=== PATIENT | female | born 1995 | race Caucasian/White ===

== ENCOUNTER 2017-06-02 09:36 | Emergency (ER) | payer OTHER ==
--- NOTE | 2017-06-02 09:52 | PDOC ---
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 As per EMS, patient clocked into work and suddenly became anxious, dyspneic with difficulty breathing. EMS gave 2 duonebs and Decadron 10 mg enroute to the ED. Upon arrival, patient reports much relief and is able to breath normally. Patient notes, she has been using her inhalers much more recently and states it may be due to seasonal allergies. Patient has been using many albuterol pumps and nebulizers at home. Patient reports chest tightness however denies any palpitations, diaphoresis. Patient denies oral contraceptive use, calf pain, LE edema. She denies headache or dizziness. She denies fever, chills, abdominal pain, nausea, vomit, diarrhea or constipation. She denies dysuria, frequency, urgency or hematuria. Patient denies sick contacts or recent travel. Allergies: seasonal allergies Past surgical history: None Social history: None PCP: None <Esperanza Shaw - Last Filed: 06/02/17 10:15> <Shaunna Burgos - Last Filed: 06/02/17 11:44> - General Stated Complaint: ASTHMA ATTACK Time Seen by Provider: 06/02/17 09:46 Past History <Esperanza Shaw - Last Filed: 06/02/17 10:15> <Shaunna Burgos - Last Filed: 06/02/17 11:44> - Past Medical History Allergies/Adverse Reactions: Allergies Allergy/AdvReac Type Severity Reaction Status Date / Time No Known Allergies Allergy Verified 06/02/17 09:53 Home Medications: Ambulatory Orders Albuterol Sulfate Inhaler - [Ventolin HFA Inhaler -] 1 - 2 inh PO Q4H #1 inhaler 06/02/17 Prednisone [Deltasone -] 40 mg PO DAILY #4 tablet 06/02/17 Review of Systems - Review of Systems Able to Perform ROS?: Yes Comments:: 06/02/17 10:16 GENERAL/CONSTITUTIONAL: No fever or chills. No weakness. HEAD, EYES, EARS, NOSE AND THROAT: No change in vision. No ear pain or discharge. No sore throat. CARDIOVASCULAR: No chest pain or shortness of breath. RESPIRATORY: +cough, wheezing. No hemoptysis. GASTROINTESTINAL: No nausea, vomiting, diarrhea or constipation. GENITOURINARY: No dysuria, frequency, or change in urination. MUSCULOSKELETAL: No joint or muscle swelling or pain. No neck or back pain. SKIN: No rash NEUROLOGIC: No headache, vertigo, loss of consciousness, or change in strength/ sensation. ENDOCRINE: No increased thirst. No abnormal weight change. HEMATOLOGIC/LYMPHATIC: No anemia, easy bleeding, or history of blood clots. ALLERGIC/IMMUNOLOGIC: No hives or skin allergy. <Esperanza Shaw - Last Filed: 06/02/17 10:15> *Physical Exam - Physical Exam Comments: 06/02/17 10:16 GENERAL: Awake, alert, and fully oriented, in no acute distress. +Anxious. HEAD: No signs of trauma EYES: PERRLA, EOMI, sclera anicteric, conjunctiva clear ENT: Auricles normal inspection, hearing grossly normal, nares patent, oropharynx clear without exudates. Moist mucosa NECK: Normal ROM, supple, no lymphadenopathy, JVD, or masses LUNGS: Breath sounds equal, clear to auscultation bilaterally. No wheezes, and no crackles HEART: Regular rate and rhythm, normal S1 and S2, no murmurs, rubs or gallops ABDOMEN: Soft, nontender, normoactive bowel sounds. No guarding, no rebound. No masses EXTREMITIES: Normal range of motion, no edema. No clubbing or cyanosis. No cords, erythema, or tenderness NEUROLOGICAL: Cranial nerves II through XII grossly intact. Normal speech, normal gait SKIN: Warm, Dry, normal turgor, no rashes or lesions noted. <Esperanza Shaw - Last Filed: 06/02/17 10:15> Heart Score/ECG Review - ECG Intrepretation Comment:: 06/02/17 10:40 sinus at 63, t wave inversions v2-3, nl axis, no other acute changes, no st changes <Shaunna Burgos - Last Filed: 06/02/17 11:44> ED Treatment Course - Medications Given in the ED: ED Medications Discontinued Medications Generic Name Dose Route Start Last Admin Trade Name Freq PRN Reason Stop Dose Admin Sodium Chloride 1,000 ml 06/02/17 09:53 06/02/17 10:09 Normal Saline - IV 06/02/17 09:54 1,000 ml ONCE ONE Administration <Esperanza Shaw - Last Filed: 06/02/17 10:15> - LABORATORY CBC & Chemistry Diagram: 06/02/17 11:00 06/02/17 10:10 <Shaunna Burgos - Last Filed: 06/02/17 11:44> Medical Decision Making - Medical Decision Making 06/02/17 10:08 a/p: 22yo female with asthma exacerbation -hx of anemia -lungs currently clear after 2 neb tx by medics -labs, ekg, cxr, reassess -feed, ivf hydration 06/02/17 11:39 pt feeling better. Requesting to sign out AMA. Pt states she no longer wants to wait for imaging or labs. Understands she is signing out AMA. Note: The patient insists on leaving the emergency dept and is signing out against medical advice. The patient understands the risks and complications that may result from the refusal of medical care and admission which includes and permanent disability. The patient has the mental capacity of understanding the risks of refusing care and is capable of making an informed decision. The patient was instructed to return to the emergency department should [] change [] mind regarding medical care or should [] condition worsen. The patient signed the Against Medical Advice form. <Shaunna Burgos - Last Filed: 06/02/17 11:44> *DC/Admit/Observation/Transfer - Attestations Scribe Attestion: 06/02/17 10:16 Documentation prepared by Esperanza Shaw, acting as medical chief technician for Shaunna Burgos DO <Esperanza Shaw - Last Filed: 06/02/17 10:15> - Discharge Dispostion Admit: No - Attestations Physician Attestion: 06/02/17 11:44 I, Dr. Shaunna Burgos DO, attest that this document has been prepared under my direction and personally reviewed by me in its entirety. I further attest, that it accurately reflects all work, treatment, procedures and medical decision -making performed by me. <Shaunna Burgos - Last Filed: 06/02/17 11:44> Diagnosis at time of Disposition: Exacerbation of asthma - Discharge Dispostion Disposition: AGAINST MEDICAL ADVICE Condition at time of disposition: Unchanged/Unknown - Prescriptions Prescriptions: Prednisone [Deltasone -] 40 mg PO DAILY #4 tablet Albuterol Sulfate Inhaler - [Ventolin HFA Inhaler -] 1 - 2 inh PO Q4H #1 inhaler - Referrals Referrals: Otis Avalos MD [Staff Physician] - Los Crystal MD [Staff Physician] - - Patient Instructions Printed Discharge Instructions: Asthma -- Adult - Post Discharge Activity Forms/Work/School Notes: Back to Work
[2017-06-02] MEDS ORDERED: SODIUM CHLORIDE 0.9% 1000 ML INFUS.BAG IV ONE (09:53)
[2017-06-02] MEDS ORDERED: ALBUTEROL SO4 2.5/IPRATROPIUM 0.5 INH SOL 3 ML VIAL.NEB. NEB ONE (09:56)
[2017-06-02] MEDS ORDERED: DEXAMETHASONE SOD PHOSPHATE 10 MG/1 ML VIAL ONE (09:56)
[2017-06-02 11:13] LABS: BASOPHIL 0.3 % (0-2.0); EOSINOPHIL 0.2 % (0-4.5); MCH 27.1 pg (25.7-33.7); MCHC 32.4 g/dl (32.0-36.0); MEAN CELL VOLUME 83.7 fl (80-96); MEAN PLT VOLUME 8.5 fl (7.5-11.1); NEUTROPHILS 83.7 % (42.8-82.8); PLATELET COUNT 218 K/MM3 (134-434); RDW 14.8 % (11.6-15.6); WHITE BLOOD COUNT 7.3 K/mm3 (4.0-10.0)
[2017-06-02 11:44] LABS: ALBUMIN 3.3 g/dl (3.4-5.0); ANION GAP 10 (8-16); CALCIUM 8.2 mg/dL (8.5-10.1); CO2 23 mmol/L (21-32); CREATININE 0.7 mg/dL (0.55-1.02); GLUCOSE,RANDOM 121 mg/dL (74-106); MAGNESIUM 1.9 mg/dL (1.8-2.4); SGOT/AST 12 U/L (15-37); SGPT/ALT 16 U/L (12-78)
[2017-06-02 11:46] LABS: ALK PHOS 74 U/L (45-117); BILIRUBIN,TOTAL 0.4 mg/dL (0.2-1.0); TOT PROT 6.8 g/dl (6.4-8.2)
[2017-06-02 12:03] VITALS: BP 114/68; PULSE 74; TEMP 98.7; BMI 25.0
--- NOTE | 2017-06-02 17:00 | EKG ---
Test Reason : Blood Pressure : / mmHG Vent. Rate : 063 BPM Atrial Rate : 063 BPM P-R Int : 144 ms QRS Dur : 082 ms QT Int : 428 ms P-R-T Axes : 055 041 035 degrees QTc Int : 437 ms NORMAL SINUS RHYTHM POSSIBLE LEFT ATRIAL ENLARGEMENT BORDERLINE ECG NO PREVIOUS ECGS AVAILABLE Confirmed by BUCKY BAY, JAKE ([id number]) on 06/02/2017 5:00:15 PM Referred By: Confirmed By:JAKE LWALER MD
== END 2017-06-02 11:52 | disposition left against medical advice (07) ==
LOC: JER 09:36
DX: J45.901 Unspecified asthma with (acute) exacerbation (principal)
CPT/HCPCS: 36415; 80053; 83735; 85025; 86850; 86900; 86901; 93005; 93010; 99283-25

== ENCOUNTER 2017-06-13 12:30 | Emergency (ER) | payer SELFPAY ==
[2017-06-13 12:35] VITALS: TEMP 97.8; BMI 25.0
[2017-06-13] MEDS ORDERED: ALBUTEROL SO4 2.5/IPRATROPIUM 0.5 INH SOL 3 ML VIAL.NEB. NEB ONE (12:43)
--- NOTE | 2017-06-13 12:43 | PDOC ---
History of Present Illness - General Chief Complaint: Asthma Stated Complaint: Asthma Time Seen by Provider: 06/13/17 12:36 - History of Present Illness Initial Comments: 06/13/17 13:18 The patient is a 22 year old female with a history of asthma and anemia who presents for evaluation of SOB and cough. The patient reports going to work today and began experiencing difficulty breathing. She reports that she did not have her inhaler on her at the time. She states that she was recently seen in the ER 2 weeks ago for these same complaints and left AMA after improving with steroids and duonebs. She reports that she received one duoneb en route to the ED. She denies fevers, chills, chest pain, abdominal pain, or changes with urination or bowel movements. She reports some associated cough with her symptoms also beginning today. Past History - Past Medical History Allergies/Adverse Reactions: Allergies Allergy/AdvReac Type Severity Reaction Status Date / Time No Known Allergies Allergy Verified 06/13/17 12:33 Home Medications: Ambulatory Orders Albuterol Sulfate Inhaler - [Ventolin HFA Inhaler -] 1 - 2 inh PO Q4H #1 inhaler 06/02/17 Prednisone [Deltasone -] 40 mg PO DAILY #8 tablet 06/13/17 Anemia: Yes Asthma: Yes COPD: No - Suicide/Smoking/Psychosocial Hx Smoking History: Never smoked Have you smoked in the past 12 months: No Hx Alcohol Use: No Drug/Substance Use Hx: No Substance Use Type: None Review of Systems - Review of Systems Comments:: 06/13/17 13:21 Constitutional: No fevers, chills, fatigue, malaise HEENT: No Rhinorrhea, nasal congestion, Cardiovascular: No chest pain, syncope, palpitations, lightheadedness Respiratory: Cough, SOB. No Hemoptysis, Gastrointestinal: No Abdominal pain, Nausea, Vomiting, Constipation, Diarrhea, Melena Genitourinary: No Dysuria, Frequency, Urgency, Hesitancy, Hematuria, Flank pain Musculoskeletal: No Myalgia, arthralgia Skin: No rashes, bruising, pallor Neurologic: No Headache, Dizziness, Numbness, Weakness, or Tingling Psychiatric: No Hallucinations. No SI or HI *Physical Exam - Vital Signs Last Vital Signs Temp Pulse Resp BP Pulse Ox 97.8 F 74 24 145/87 99 06/13/17 12:33 11/13/17 12:33 06/13/17 12:33 06/13/17 12:33 06/13/17 12:33 - Physical Exam Comments: 06/13/17 13:21 General Appearance: Nourished. No Apparent Distress HEENT: EOMI, VICTORINO. No Pharyngeal Erythema, Tonsillar Exudate, Tonsillar Erythema Neck: No Cervical Lymphadenopathy Respiratory/Chest: Lungs Clear, Normal Breath Sounds. Mild expiratory wheezing. No Crackles, Rales, Rhonchi, Cardiovascular: Regular Rhythm, Regular Rate. No Murmur, Gallops, Rubs Gastrointestinal/Abdominal: Normal Bowel Sounds, Soft. No Guarding, Rebound, Tenderness Musculoskeletal: No CVA Tenderness Extremity: Normal Capillary Refill Integumentary: Normal Color, Dry, Warm Neurologic: Fully Oriented, Alert, Normal Mood/Affect, Normal Response, Medical Decision Making - Medical Decision Making 06/13/17 13:22 The patient is a 22 year old female with a history of asthma and anemia who presents for evaluation of SOB and cough. Given the patient's history of asthma and recent similar presentation due to an asthma exacerbation, it is likely the patient's symptoms are due to an asthma exacerbation. The patient reports that this presentation is similar to her normal asthma exacerbations. We will treat with a duoneb and prednisone here in the ED. We will continue to monitor and reassess. 06/13/17 14:03 The patient reports significant improvement in her symptoms after treatment here in the ED. We are comfortable discharging the patient home at this time with PCP follow up on a course of prednisone. We discussed the plan with the patient who voiced understanding and is agreeable with the plan. *DC/Admit/Observation/Transfer Diagnosis at time of Disposition: Asthma exacerbation Qualifiers: Asthma severity: mild Asthma persistence: unspecified Qualified Code(s): J45.901 - Unspecified asthma with (acute) exacerbation - Discharge Dispostion Disposition: HOME Condition at time of disposition: Improved Admit: No - Prescriptions Prescriptions: Prednisone [Deltasone -] 40 mg PO DAILY #8 tablet - Referrals - Patient Instructions Printed Discharge Instructions: Asthma -- Adult Additional Instructions: Please return to the ER if you experience concerning or worsening symptoms including fevers, chest pain, worsening difficulty breathing. You were seen in the ER for an asthma exacerbation. You were treated with steroids and nebulizer treatment. It is important that you keep your albuterol inhaler on your person in case of future exacerbations. We have sent a prescription for steroids to your pharmacy that you should take once a day for the next 4 days. It is important that you call to schedule a follow up appointment with your primary care provider to discuss further management of your symptoms. - Post Discharge Activity
[2017-06-13] MEDS ORDERED: predniSONE 20 MG TABLET (UD) PO ONE (13:07)
[2017-06-13] MEDS ORDERED: predniSONE 20 MG TABLET (UD) ONE (13:10)
--- NOTE | 2017-06-13 14:24 | PDOC ---
Attending Attestation - Resident Resident Name: ChristianeColin - ED Attending Attestation I have performed the following: I have examined & evaluated the patient, The case was reviewed & discussed with the resident, I agree w/resident's findings & plan, Exceptions are as noted - HPI HPI: 06/13/17 14:22 22-year-old female patient with history of asthma with prior ED visits presents with asthma exacerbation. Patient reports that she was in her usual state of health when today she developed short of breath and wheezing. Denies fevers, chills, cough. Patient came to the ED for further evaluation. - Physicial Exam PE: 06/13/17 14:23 GENERAL: NAD, AAOx3 PULM: feint expiratory wheezing bilaterally, otherwise taking good excursions of breath sounds. no decreased breaths sounds noted. - Medical Decision Making 06/13/17 14:23 Vital Signs Temp Pulse Resp BP Pulse Ox 97.8 F 74 24 145/87 99 06/13/17 12:33 06/13/17 12:33 06/13/17 12:33 06/13/17 12:33 06/13/17 12:33 Likely asthma exacerbation (mild). Pt was already given nebulizers and steroids with significant improvement. Pt is cleared for D/C with PMD follow up.
[2017-06-13 14:28] VITALS: BP 101/61; PULSE 63
== END 2017-06-13 14:29 | disposition home or self-care (01) ==
LOC: JER 12:30
PROC: 3E0F7GC Introduction of Other Therapeutic Substance into Respiratory Tract, Via Natural or Artificial Opening (ICD-10-PCS; principal; 2017-06-13)
DX: J45.901 Unspecified asthma with (acute) exacerbation (principal)
CPT/HCPCS: 99282-25